=== PATIENT | male | born 1995 | race Caucasian/White ===

== ENCOUNTER 2024-12-05 01:34 | Emergency (ER) | payer MEDICAID, SELFPAY ==
[2024-12-05 01:35] VITALS: BP 134/91; PULSE 90; RESP 16; TEMP 37.2; O2SAT 96; BMI 21.7
--- NOTE | 2024-12-05 02:02 | EDS_ITS ---
HPI History of Present Illness Chief Complaint: Dental Informant: patient Narrative Narrative: Patient is a 29-year-old male who had all of his teeth extracted roughly 1 week ago. He states he was on hydrocodone which was helping with pain. He states however he ran out of the medication and has had diffuse dental pain since that time. He states he saw his dentist and was prescribed clindamycin which he has been taking for potential developing infection as well as given 800 mg ibuprofen. He states despite doing this the pain has been persistent and therefore comes in for evaluation [facility] Medical History no medical history Home Medications ?Medication ?Instructions ?Recorded ?Last Taken ?Type chlorhexidine gluconate 0.12 % 12/05/24 Unknown Histo ry mouthwash clindamycin HCl 300 mg capsule 300 mg PO Q6H 12/05/24 Unknown History ibuprofen 800 mg tablet 800 mg PO Q6H PRN PRN fever or pain 12/05/24 Unknown History oxycodone-acetaminophen 5 mg-325 1 tab PO Q6H PRN pain 3 days #12 12/05/24 Unkno wn Rx mg tablet (Percocet) tabs Allergy/AdvReac Type Severity Reaction Status Date / Time Penicillins (PCN) Allergy PT UNABLE Verified 12/05/24 01:39 TO RESPOND-NEEDS F/U Social History Smoking Status: Current every day smoker tobacco type: e-cigarettes ROS ROS ED Constitutional Constitutional ED: Denies chills or fever(s) Eyes Eyes: Denies change in vision ENT ENT ED: Reports other Details: Positive facial swelling and dental pain Cardiovascular Cardiovascular: Denies chest pain Respiratory/Chest Respiratory/Chest: Denies cough or dyspnea Gastrointestinal Gastrointestinal: Denies abdominal pain, diarrhea, nausea or vomiting Musculoskeletal Musculoskeletal: Denies neck pain Integumentary Denies rash Neurologic Neurologic: Denies headache(s) Hematologic/Lymphatic Hematologic/Lymphatic: Denies easy bleeding or easy bruising Allergic/Immunologic Allergic/Immunologic ED: Reports mouth swelling; Denies tongue swelling EXAM Physical Exam Const Vital Signs: 12/05/24 01:35 12/05/24 02:09 Temperature 98.9 F 98.9 F Temperature Source Oral Pulse Rate 90 90 Respiratory Rate 16 16 Blood Pressure 134/91 H 134/91 H Blood Pressure Mean 105 105 Pulse Ox 96 96 Oxygen Delivery Method Room Air Positive well nourished and well developed General Appearance ED: well developed HEENT Reports moist mucous membranes HEENT Narrative: Patient has soft tissue swelling along the lower jaw and upper cheek region with ecchymosis consistent with recent dental extractions. There is no induration palpated No overlying erythema or warmth No lip swelling noted. No tongue swelling Mucous membranes are moist and there is diffuse irritation of the upper and lower gingiva consistent with dental extraction without obvious abscess formation No airway edema or compromise noted No signs of ANUG No secondary findings to suggest infection Eyes PERRL and EOMs intact bilaterally Neck supple Neck Narrative: No brawny edema in the submental space to suggest Waylon's angina Resp normal respiratory effort and clear to auscultation bilaterally Cardio regular rate and regular rhythm Extremity normal to inspection Neuro oriented x3, CN's II-XII intact bilaterally and no sensory deficits noted Sensorium / Orientation: alert Motor Exam: strength 5/5 throughout Psych mental status grossly normal Skin Skin Narrative: Soft tissue swelling to the face as documented above with overlying ecchymosis consistent with trauma from dental extraction MDM MDM MDM Narrative Medical decision making narrative: Patient arrived to the ER slightly hypertensive but overall stable vitals. He reported persistent/increased pain to his mouth now that the hydrocodone has been completed despite using clindamycin and 800 mg ibuprofen. The patient shows soft tissue swelling and ecchymosis consistent with a traumatic dental extraction. However he does not have signs of ANUG or peritonsillar abscess or signs concerning for Waylon's angina. I feel his symptoms are related to persistent pain from the traumatic extraction and not due to a secondary infection. Moreover the fact that he is currently on clindamycin would go against developing systemic infection as well. Therefore he was advised to continue his ibuprofen and clindamycin but I will add Percocet for the next few days secondary to the diffuse pain from his dental extraction History & Record Review Discussion w/independent historian: Patient Discharge Plan Triage Chief Complaint: Dental ED Provider: Dheeraj Prakash Dx/Rx/DC Orders Clinical Impression: Pain, dental, Post-operative pain Instructions: Dental Trauma, ED Dental Pain Prescriptions: New oxycodone-acetaminophen [Percocet] 5-325 mg tablet 1 tab PO Q6H PRN (Reason: pain) 3 Days Qty: 12 0RF No Action clindamycin HCl 300 mg capsule 300 mg PO Q6H ibuprofen 800 mg tablet 800 mg PO Q6H PRN PRN (Reason: fever or pain) chlorhexidine gluconate 0.12 % mouthwash Patient Comments: [NO ORIGINAL SIG] Primary Care Provider: Care Physician,No Primary Referrals: NOT,DEFINED [Non-Staff] - Activity Restrictions/Additional Instructions: Please continue the clindamycin as there is no obvious signs of infection following your postoperative procedure at this time. Take the ibuprofen 3 times a day that was prescribed by your dentist but add the Percocet with this for improved pain control. You will need to eat soft foods such as protein shakes and smoothies through a straw for the next few days as well to ensure there is no irritation to the gum tissue. If you develop a fever of 100.4 or noticed swelling underneath your chin or have any further concerns and please return to the ER for evaluation. However at this time there is no obvious signs of infection and you are healing as to be expected following your dental surgery Print Language: Turkmen Disposition Disposition: Home, Self Care Discharge Date/Time: 12/05/24 02:15
[2024-12-05 02:09] VITALS: BP 134/91; PULSE 90; RESP 16; TEMP 37.2; O2SAT 96
--- OUTSIDE RECORDS SUMMARY | 2024-12-05 02:17 | XMS RPT_ITS | CCD ---
Author Organization [facility] Care Team Providers Care Packaging Technician Name Role Phone Unavailable Primary Care Provider UnavailShine Pena Attending Unavailable Pavel Sol Attending Unavailable Allergies Allergy Classification Reported Allergen(s) Allergy Type Date of Onset Reaction(s) Facility (1 source) Penicillins Propensity to adverse reactions to drug 01-25-2020 [place], [place] Medications Completed/Discontinued Medications Medication Drug Class(es) Dates Sig (Normalized) Sig (Original) meclizine hydrochloride 12.5 mg oral tablet (2 sources) Antiemetic Start: 01-25-2020 End: 01-25-2020 meclizine (ANTIVERT) tablet 25 mg Start: 01-25-2020 End: 01-28-2020 take 1 tablet by mouth three times daily as needed for dizziness meclizine (ANTIVERT) 25 MG tablet Take 1 tablet by mouth 3 times daily as needed for Dizziness 9 tablet 0 01/25/2020 01/28/2020 Active 2 ml ondansetron 2 mg/ml injection (2 sources) Serotonin-3 Receptor Antagonist Start: 01-25-2020 End: 01-25-2020 ondansetron (ZOFRAN) injection 4 mg Start: 01-25-2020 End: 01-28-2020 take 1 tablet by mouth every eight hours as needed for nausea ondansetron (ZOFRAN ODT) 4 MG disintegrating tablet Take 1 tablet by mouth every 8 hours as needed for Nausea or Vomiting 9 tablet 0 01/25/2020 01/28/2020 Active 50 ml sodium chloride 9 mg/m l injection (2 sources) Start: 01-25-2020 End: 01-25-2020 0.9 % sodium chloride bolus Problems Problem Classification Problem Date Documented Da te Episodic/Chronic Conditions associated with dizziness or vertigo (2 sources) Benign paroxysmal positional vertigo; Translations: [Dizziness] Episodic Results Test Name Value Interpretation Reference Range Facil it Office Visit Reporton 2023 Office Visit Report [facility] [address] [place] [address] OFFICE VISIT Date of Service: 11/16/23 MR#: [id number] Acct: [id number] Patient: STEFAN ABRAHAM Rep #: [id number] 5 : 1995 Provider: RAVI Kowalski Age/Sex: 28/M Location: [facility] [place] Status: Signed Intake Intake Visit 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 Office Procedures [facility] Billing Sheet Testing Non-DOT Random Drug Screen: Yes 11/16/23 1507 Date Pavel Martinez Signature: Date (if applicable) CC: [facility] Office Visit Reporton 2023 Office Visit Report [facility] [address] [place] [address] OFFICE VISIT Date of Service: 10/28/23 MR#: [id number] Acct: [id number] Patient: STEFAN ABRAHAM Rep #: [id number] 4 : 1995 Provider: RAVI Gardner Age/Sex: 28/M Location: [facility] [place] Status: Signed Intake Intake Visit Reasons: 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/ [employer] Office Procedures [facility] Billing Sheet Testing Pre-Employment Drug Screen: Yes 10/28/23 1631 Date Shine Martinez Signature: Date (if applicable) CC: Normal [facility] Basic Metabolic Panelon 10-0 Calcium [Mass/Vol] 9.3 mg/dL Normal 8.4-10.4 [facility] Comment on above: Performed By: #### H ROMINA BMP3 #### [facility] [address] [place] [address] Glucose [Mass/Vol] 88 mg/dL Normal 70-100 [facility] Comment on above: Performed By: #### H ROMINA BMP3 #### [facility] [address] [place] [address] Anion gap [Moles/Vol] 10 Normal [facility] Comment on above: Performed By: #### H ROMINA BMP3 #### [facility] [address] [place] [address] CO2 [Moles/Vol] 24 mmol/L Normal 22-30 [facility] Comment on above: Performed By: #### H ROMINA BMP3 #### [facility] [address] [place] [address] Creatinine [Mass/Vol] 0.61 mg/dL Normal 0.52-1.25 [facility] Comment on above: Performed By: #### Tarah VANEGAS BMP3 #### [facility] [address] [place] [address] GFR/1.73 sq M predicted among blacks MDRD (S/P/Bld) [Vol rate/Area] mL/min/{1.73_m2} Normal >60 [facility] Comment on above: Performed By: #### H ROMINA BMP3 #### [facility] [address] [place] [address] GFR/1.73 sq M predicted among non-blacks MDRD (S/P/Bld) [Vol rate/Area] mL/min/{1.73_m2} Normal >60 [facility] Comment on above: Result Comment: KDIG O guidelines provide the following GFR categories: Stage GFR(ml/min/1.73 m2) Terms G1 >=90 Normal or high G2 60-89 Mildly decreased* G3a 45-59 Mildly to moderately decreased G3b 30-44 Moderately to severely decreased G4 15-29 Severely decreased G5 <15 Kidney failure *Relative to young adult level. In the absence of evidence of kidney damage, neither GFR category G1 nor G2 fulfill the criteria for CKD. The CKD-EPI equation is validated in individuals 18 years of age and older. Currently the best equation for estimating glomerular filtration rate (GFR) from serum creatinine in children is the Bedside Garcia equation. It is less accurate in patients with extremes of muscle mass, restriction of dietary protein, ingestion of creatine, extra-renal metabolism of creatinine, or treatment with medications that affect renal tubular creatinine secretion. Performed By: #### H ROMINA BMP3 #### [facility] [address] [place] [address] Urea nitrogen [Mass/Vol] 16 mg/dL Normal 7-20 [facility] Comment on above: Performed By: #### H ROMINA BMP3 #### [facility] [address] [place] [address] Chloride [Moles/Vol] 104 mmol/L Normal 98-107 [facility] Comment on above: Performed By: #### H ROMINA, BMP3 #### [facility] [address] [place] [address] Potassium [Moles/Vol] 4.0 mmol/L Normal 3.5-5.1 [facility] Comment on above: Performed By: #### H ROMINA, BMP3 #### [facility] [address] [place] [address] Sodium [Moles/Vol] 137 mmol/L Normal 135-145 [facility] Comment on above: Performed By: #### H ROMINA, BMP3 #### [facility] [address] [place] [address] Anion gap [Moles/Vol] 10 mmol/L [facility] [place] Calcium [Mass/Vol] 9.3 mg/dL 8.4 - 10. 4 mg/dL [place], [place] Chloride [Moles/Vol] 104 mmol/L 98 - 107 mmol/L [facility] [place] CO2 [Moles/Vol] 24 mmol/L 22 - 30 mmol/L [place] Creatinine [Mass/Vol] 0.61 mg/dL 0.52 - 1.25 mg/dL [place] EGFR IF NonAfrican Taiwanese >90.0 >60 mL/min [place] Comment on above: KDIGO guidelines pro vide the following GFR categories: Stage GFR(ml/min/1.73 m2) Terms G1 >=90 Normal or high G2 60-89 Mildly decreased* G3a 45-59 Mildly to moderately decreased G3b 30-44 Moderately to severely decreased G4 15-29 Severely decreased G5 <15 Kidney failure *Relative to young adult level. In the absence of evidence of kidney damage, neither GFR category G1 nor G2 fulfill the criteria for CKD. The CKD-EPI equation is validated in individuals 18 years of age and older. Currently the best equation for estimating glomerular filtration rate (GFR) from serum creatinine in children is the Bedside Garcia equation. It is less accurate in patients with extremes of muscle mass, restriction of dietary protein, ingestion of creatine, extra-renal metabolism of creatinine, or treatment with medications that affect renal tubular creatinine secretion. GFR/1.73 sq M predicted among blacks MDRD (S/P/Bld) [Vol rate/Area] mL/min/{1.73_m2} >60 mL/min [place], [place] Glucose [Mass/Vol] 88 mg/dL 70 - 100 mg/dL [place], [place] Potassium [Moles/Vol] 4.0 mmol/L 3.5 - 5.1 mmol/L [place] Sodium [Moles/Vol] 137 mmol/L 135 - 145 mmol/L [place] Urea nitrogen [Mass/Vol] 16 mg/dL 7 - 20 mg/dL [place] Test Performed by [facility], [address] [place] [id number] [place] [address] CT Head WO Contraston 2019 Zafar, [facility] Incoming Radiology Results From [employer] - 01/25/2020 3:54 PM EDT Patient Name: STEFAN ABRAHAM ---CT--- Exam Date/Time 01/25/2020 15:49:[address] Head or Brain w/o Contrast Ordering Physician MD JOHNSON VIJAY Accession Number [id number] CPT4 Codes 00694 () Reason For Exam dizziness Report Examination: CT head Technique: Axial CT images of the head were obtained without IV contrast at 3 mm intervals. Coronal and sagittal reconstructions were also provided. Indication: dizziness Findings: The ventricles, sulci and cisterns are grossly normal in size and configuration. The farris-white differentiation is grossly intact. There are no extra-axial fluid collections or acute intracranial hemorrhage appreciated. There is no midline shift identified. The posterior fossa is grossly unremarkable. The paranasal sinuses and mastoid air cells are grossly clear. The bones are grossly unremarkable. Impression: No CT evidence of acute intracranial abnormality. Report Dictated on --- Final --- Dictated: 01/25/2020 3:52 pm Dictating Physician: MD YEUNG KRIKOR Signed Date and Time: 01/25/2020 3:52 pm Signed by: MD YEUNG KRIKOR Transcribed Date and Time: 01/25/2020 3:52 [place], [place] Patient Name: STEFAN ABRAHAM ---CT--- Exam Date/Time 01/25/2020 15:49:[address] Head or Brain w/o Contrast Ordering Physician MD JOHNSON VIJAY Accession Number [id number] CPT4 Codes 06842 () Reason For Exam dizziness Report Examination: CT head Technique: Axial CT images of the head were obtained without IV contrast at 3 mm intervals. Coronal and sagittal reconstructions were also provided. Indication: dizziness Findings: The ventricles, sulci and cisterns are grossly normal in size and configuration. The farris-white differentiation is grossly intact. There are no extra-axial fluid collections or acute intracranial hemorrhage appreciated. There is no midline shift identified. The posterior fossa is grossly unremarkable. The paranasal sinuses and mastoid air cells are grossly clear. The bones are grossly unremarkable. Impression: No CT evidence of acute intracranial abnormality. Report Dictated on --- Final --- Dictated: 01/25/2020 3:52 pm Dictating Physician: MD YEUNG KRIKOR Signed Date and Time: 01/25/2020 3:52 pm Signed by: MD YEUNG KRIKOR Transcribed Date and Time: 01/25/2020 3:52 [place] CT Head or Brain w/o Contras ton 01-25-2020 CT Head or Brain w/o Contrast Patient Name: STEFAN ABRAHAM CT Exam Date/Time 01/25/2020 15:49:[address] Head or Brain w/o Contrast Ordering Physician MD JOHNSON VIJAY Accession Number [id number] CPT4 Codes 01329 () Reason For Exam dizziness Report Examination: CT head Technique: Axial CT images of the head were obtained without IV contrast at 3 mm intervals. Coronal and sagittal reconstructions were also provided. Indication: dizziness Findings: The ventricles, sulci and cisterns are grossly normal in size and configuration. The farris-white differentiation is grossly intact. There are no extra-axial fluid collections or acute intracranial hemorrhage appreciated. There is no midline shift identified. The posterior fossa is grossly unremarkable. The paranasal sinuses and mastoid air cells are grossly clear. The bones are grossly unremarkable. Impression: No CT evidence of acute intracranial abnormality. Report Dictated on Final Dictated: 01/25/2020 3:52 pm Dictating Physician: MD YEUNG KRIKOR Signed Date and Time: 01/25/2020 3:52 pm Signed by: MD YEUNG KRIKOR Transcribed Date and Time: 01/25/2020 3:52 Normal [facility] Hemogram (CBC) w/Auto Diffon 01-25-2020 Absolute Baso # 0.1 10*3/uL 0 - 0.2 10*3/uL [place], [place] Absolute Neut # 6.3 10*3/uL 1.8 - 7 10*3/uL [place] Basophils/100 WBC (Bld) 0.7 % 0 - 2 % [place] Eosinophils (Bld) [#/Vol] 0.1 10*3/uL 0 - 0.5 10*3/uL [place] Eosinophils/100 WBC (Bld) 1.2 % 1 - 6 % [place] Erythrocyte distribution width (RBC) [Ratio] 14.1 % 11.5 - 14.5 % [place] Granulocytes/100 WBC (Bld) 64.9 % 40 - 80 % [place] Hematocrit (Bld) [Volume fraction] 43.0 % 40 - 52 % [place] Hemoglobin (Bld) [Mass/Vol] 14.2 g/dL 13 - 18 g/dL [place] Lymphocytes (Bld) [#/Vol] 2.4 10*3/uL 1 - 4.3 10*3/uL [place] Lymphocytes/100 WBC (Bld) 24.9 % 20 - 40 % [place] MCH (RBC) [Entitic mass] 29.3 pg 26 - 34 pg [place] MCHC (RBC) [Mass/Vol] 32.9 % 32 - 36 % [place] MCV (RBC) [Entitic vol] 88.9 fL 80 - 98 fL [place] Monocytes (Bld) [#/Vol] 0.8 10*3/uL 0 - 0.8 10*3/uL [place] Monocytes/100 WBC (Bld) 8.3 % 2 - 10 % [place] Platelet mean volume (Bld) [Entitic vol] 8.3 fL 7.4 - 10.4 fL [place] Platelets (Bld) [#/Vol] 249 10*3/uL 140 - 440 10*3/uL [place] RBC (Bld) [#/Vol] 4.84 10*6/uL 4.4 - 5.9 10*6/uL [place] WBC (Bld) [#/Vol] 9.6 10*3/uL 3.6 - 10.7 10*3/uL [place] Test Performed by [facility] [employer] [facility], [address] [place] [address] [place] Hemogram w/ Autodiffon 01-24 Abs Baso Cnt 0.1 10*3/uL Normal 0.0-0.2 [facility] Comment on above: Performed By: #### H EMDF, BMP3 #### [address] [address] [place] [address] Abs Neutrophile Cnt 6.3 10*3/uL Normal 1.8-7.0 [facility] Comment on above: Performed By: #### H EMDF, BMP3 #### [address] [address] [place] [address] Basophils/100 WBC (Bld) 0.7 % Normal 0.0-2.0 [facility] Comment on above: Performed By: #### H EMDF BMP3 #### [address] [address] Eosinophils (Bld) [#/Vol] 0.1 10*3/uL Normal 0.0-0.5 [facility] Comment on above: Performed By: #### H EMDF BMP3 #### [address] [address] Eosinophils/100 WBC (Bld) 1.2 % Normal 1.0-6.0 [facility] Comment on above: Performed By: #### H EMDF BMP3 #### [address] [address] Erythrocyte distribution width (RBC) [Ratio] 14.1 % Normal 11.5-14.5 [facility] Comment on above: Performed By: #### H EMDF, BMP3 #### [address] [address] Granulocytes/100 WBC (Bld) 64.9 % Normal 40.0-80.0 [facility] Comment on above: Performed By: #### H EMDF, BMP3 #### [address] [address] Hematocrit (Bld) [Volume fraction] 43.0 % Normal 40.0-52.0 [facility] Comment on above: Performed By: #### H EMDF, BMP3 #### [address] [place] [address] Hemoglobin (Bld) [Mass/Vol] 14.2 g/dL Normal 13.0-18.0 [facility] Comment on above: Performed By: #### H EMDF, BMP3 #### [address] [address] [place] [address] Lymphocytes (Bld) [#/Vol] 2.4 10*3/uL Normal 1.0-4.3 [facility] Comment on above: Performed By: #### H EMDF, BMP3 #### [address] [address] Lymphocytes/100 WBC (Bld) 24.9 % Normal 20.0-40.0 [facility] Comment on above: Performed By: #### H EMDF, BMP3 #### [address] [address] MCH (RBC) [Entitic mass] 29.3 pg Normal 26.0-34.0 [facility] Comment on above: Performed By: #### H EMDF, BMP3 #### [address] [address] MCHC (RBC) [Mass/Vol] 32.9 % Normal 32.0-36.0 [facility] Comment on above: Performed By: #### H EMDF, BMP3 #### [address] [address] MCV (RBC) [Entitic vol] 88.9 fL Normal 80.0-98.0 [facility] Comment on above: Performed By: #### H EMDF, BMP3 #### [address] [address] Monocytes (Bld) [#/Vol] 0.8 10*3/uL Normal 0.0-0.8 [facility] Comment on above: Performed By: #### H EMDF, BMP3 #### [address] [address] Monocytes/100 WBC (Bld) 8.3 % Normal 2.0-10.0 [facility] Comment on above: Performed By: #### H EMDF, BMP3 #### [facility] [employer] [address] [place] [address] Platelet mean volume (Bld) [Entitic vol] 8.3 fL Normal 7.4-10.4 [facility] Comment on above: Performed By: #### H EMDF, BMP3 #### [facility] [employer] [facility] [address] [place] [address] Platelets (Bld) [#/Vol] 249 10*3/uL Normal 140-440 [facility] Comment on above: Performed By: #### H EMDF, BMP3 #### [address] [address] [place] [address] RBC (Bld) [#/Vol] 4.84 10*6/uL Normal 4.40-5.90 [facility] [employer] Comment on above: Performed By: #### H EMDF, BMP3 #### [facility] [employer] [address] [address] [place] [address] WBC (Bld) [#/Vol] 9.6 10*3/uL Normal 3.6-10.7 [facility] Comment on above: Performed By: #### H EMDF, BMP3 #### [facility] [employer] [address] [address] Vital Signs Date Time Vital Sign Value Performing Clinician Yoly johnson 01-25-2020 15:01-0400 Body Temperature 98.1 [degF] [email or web address] [place] 01-25-2020 15:01-0400 BP Diastolic 73 mm[Hg] [facility]asha [facility] [place] 01-25-2020 15:01-0400 BP Systolic 125 mm[Hg] Sasha [facility] [place] 01-25-2020 15:01-0400 Pulse (Heart Rate) 66 /min [facility]asha [facility] [place] 01-25-2020 15:01-0400 Pulse Oximetry 100 % Sasha [facility] [place] 01-25-2020 15:01-0400 Respiratory Rate 18 /min Sasha Johnson [place], [place] Encounters Encounter Date Encounter Type Care Provider Facility Start: 11-16-2023 End: 11-16-2023 ambulatory Pavel RODRIGUES Facility:[facility] Start: 10-28-2023 End: 10-28-2023 ambulatory Shine RODRIGUES Facility:[facility] Start: 01-25-2020 End: 01-25-2020 Emergency department patient visit Sasha Johnson Work Phone: [facility] Emergency Dept Comment on above: Benign paroxysmal po sitional vertigo, unspecified laterality (Primary Dx); Dizziness Procedures Date Procedure Procedure Detail Performing Clinician Start: 01-25-2020 Ct head/brain w/o contrast material Sasha Johnson Work Phone: Start: 01-25-2020 Basic metabolic pane l calcium total Sashanora Johnson Work Phone: Start: 01-25-2020 Blood count complete auto&auto difrntl wbc Sasha Johnson Work Phone: Plan of Treatment Date Care Activity Detail Author Start: 12-18-2019 Influenza vaccination Flu vaccine (# 1) [place], [place] Start: 06-21-2015 DTaP/Tdap/Td vaccine (1 - Tdap) DTaP/Tdap/Td vaccine (1 - Tdap) [place] Start: 06-21-2011 HIV screening HIV screen [place], [place] Start: 06-21-2007 HPV vaccine (1 - Mal e 2-dose series) HPV vaccine (1 - Male 2-dose series) [place] Start: 1997 Varicella vaccine (1 of 2 - 2-dose childhood series) Varicella vaccine (1 of 2 - 2-dose childhood series) [place] EKG 12 Lead - Chest Pain EKG 12 Lead - Chest Pain ECG STAT 01/25/2020 3:26 PM EDT [place], [place] Payers Date Payer Category Payer Self-pay 2020 Unknown BCBS BCBS OUT OF STATE [id number] 2020-Present [address] [place] [address] [id number] Unknown [id number] Unknown [id number] Social History Date Type Detail Facility Tobacco smoking status NHIS Unknown if ev er smoked [place], [place] Sex Assigned At Not on file [place] Exposure to SARS-CoV-2 (event) Not sure [place] Discharge Instructions * Attachments The following attachments cannot be sent through Care Everywhere. * Dizziness (Bhutanese) * Vertigo (Bhutanese) documented in this encounter Assessments Diagnosis Benign paroxysmal positional vertigo, unspecified laterality Dizziness Dizziness and giddiness Summary Purpose Family History No Family History Records FoundNo Family History Records Found Advance Directives No Advanced Directives Records FoundNo Advanced Directives Records Found Additional Source Comments Reason for Visit (unrecogniz ed section and content) Reason Comments Headache Dizziness (unrecognized sect ion and content) No Status Records FoundNo Status Records Found INFORMATION SOURCE (unrecogn ized section and content) DATE CREATED AUTHOR 01/29/2020 [facility] DATE CREATED AUTHOR AUTHOR'S ORGANIZ ATION 11/18/2023 [facility] FOR RECORDS PERTAINING TO PATIENTS WHO ARE OR HAVE BEEN ENROLLED IN A CHEMICAL DEPENDENCY/SUBSTANCEABUSE PROGRAM, SOME INFORMATION MAY BE OMITTED. This clinical summary was aggregated from multiple sources. Caution should be exercised in using it in the provision of clinical care. This summary normalizes information from multiple sources, and as a consequence, information in this document may materially change the coding, format and clinical context of patient data. In addition, data may be omitted in some cases. CLINICAL DECISIONS SHOULD BE BASED ON THE PRIMARY CLINICAL RECORDS. [employer] provides no warranty or guarantee of the accuracy or completeness of information in this document.
== END 2024-12-05 02:15 | disposition home or self-care (01) ==
LOC: ED 02:15
PROVIDERS: Emergency Provider Emergency Medicine; Visit Provider Emergency Medicine
DX: K08.89 Other specified disorders of teeth and supporting structures (principal); G89.18 Other acute postprocedural pain; M79.89 Other specified soft tissue disorders; F17.290 Nicotine dependence, other tobacco product, uncomplicated; Z79.1 Long term (current) use of non-steroidal anti-inflammatories (NSAID); Z79.899 Other long term (current) drug therapy; Z98.818 Other dental procedure status
CPT/HCPCS: 99283